=== PATIENT | female | born 1985 | race Caucasian/White ===

== ENCOUNTER 2025-10-29 22:22 | Emergency (ER) | payer OTHER ==
[~2025-10-29] VITALS: Ht 175.3 cm; Wt 91.0 kg
[2025-10-29 22:33] VITALS: O2SAT 97
[2025-10-29 23:45] LABS: BASOPHILS % 0.4 % (0.0-2.0); EOSINOPHILS % 1.4 % (0.0-5.0); HEMATOCRIT. 37.2 % (36.0-48.0); HEMOGLOBIN. 12.6 g/dL (12.0-16.0); LYMPHOCYTES % 30.9 % (20.0-50.0); MEAN PLATELET VOLUME 9.9 fl (7.4-10.4); MONOCYTES % 7.3 % (2.0-8.0); NEUTROPHILS % 60.0 % (40.0-76.0); PLATELET 190 x1000/uL (130-400); RED BLOOD CELL COUNT 4.10 mill/uL (4.2-5.4); RED CELL DISTRIBUTION WIDTH 14.4 % (11.6-14.6)
[2025-10-30] LABS: CREATININE 1.0 mg/dL (0.6-1.0)
[2025-10-30 00:01] LABS: ETHANOL BLOOD < 10 mg/dL (<10); PROTEIN TOTAL 8.0 g/dL (6.0-8.3); UREA NITROGEN BLOOD 12 mg/dL (9-23)
[2025-10-30 00:02] LABS: ASPARTATE AMINOTRANSFERASE 25 IU/L (<34); TROPONIN I HIGH SENSITIVITY < 4 ng/L (3.0-34)
[2025-10-30 00:03] LABS: BILIRUBIN DIRECT 0.1 mg/dL (<=3.0); BILIRUBIN TOTAL 0.6 mg/dL (0.1-1.0)
[2025-10-30 00:14] LABS: HCG SCREEN NEGATIVE
[2025-10-30 00:45] VITALS: BP 115/75; PULSE 64; RESP 18; TEMP 37.1; O2SAT 98
== END 2025-10-30 00:58 | disposition home or self-care (01) ==
LOC: ER 22:22
DX: R55 Syncope and collapse (principal); E03.9 Hypothyroidism, unspecified; F19.90 Other psychoactive substance use, unspecified, uncomplicated; R06.02 Shortness of breath
CPT/HCPCS: 36415; 71045; 80048; 80076; 80320; 83880; 84484; 84703; 85025; 93005; 93970; 99285; G0480